=== PATIENT | female | born 1970 | race African-American/Black ===

== ENCOUNTER 2022-08-04 09:56 | Emergency (ER) | payer OTHER ==
[~2022-08-04] VITALS: Ht 157.5 cm; Wt 99.3 kg
[2022-08-04] MEDS ORDERED: AMLO10TA PO (10:11)
[2022-08-04] MEDS ORDERED: IBUPROFEN 600MG TAB PO ONE (12:30)
[2022-08-04 13:53] VITALS: BP 144/79
== END 2022-08-04 13:57 | disposition home or self-care (01) ==
LOC: M ED 09:56
DX: S46.811A Strain of other muscles, fascia and tendons at shoulder and upper arm level, right arm, initial encounter (principal); R55 Syncope and collapse; V43.62XA Car passenger injured in collision with other type car in traffic accident, initial encounter; Y92.410 Unspecified street and highway as the place of occurrence of the external cause; I10 Essential (primary) hypertension; Z86.69 Personal history of other diseases of the nervous system and sense organs; Z79.899 Other long term (current) drug therapy